=== PATIENT | male | born 1970 | race Caucasian/White ===

== ENCOUNTER 2018-07-12 03:16 | Inpatient (IN) | payer BC ==
[~2018-07-12] VITALS: Ht 175.3 cm; Wt 102.1 kg
[2018-07-12] VITALS (12 sets, daily range): BP systolic 111–208
[2018-07-12] MEDS ORDERED: cloNIDine HCL 0.1 MG TABLET PO ONE ×2 (03:45→05:15)
[2018-07-12 03:53] LABS: BASOPHILS % (AUTO) 0.4 % (0.0-2.0); EOSINOPHILS # (AUTO) 0.2 K/uL (0.0-0.4); EOSINOPHILS % (AUTO) 2.1 % (0.0-4.0); HEMATOCRIT 43.8 % (36-54); HEMOGLOBIN 15.2 g/dL (14.0-18.0); LYMPHOCYTES # (AUTO) 2.4 K/uL (1.0-5.5); LYMPHOCYTES % (AUTO) 22.8 % (20.5-51.5); MEAN CORPUSCULAR HEMOGLOBIN 32 pg (27-31); MEAN CORPUSCULAR HGB CONC 35 % (32-36); MEAN CORPUSCULAR VOLUME 92 fL (79.0-98.0); MONOCYTES # (AUTO) 0.8 K/uL (0.0-1.0); MONOCYTES % (AUTO) 7.4 % (1.7-9.3); NEUTROPHILS # (AUTO) 7.1 K/uL (1.8-7.7); NEUTROPHILS % (AUTO) 67.3 % (40.0-70.0); PLATELET COUNT (AUTO) 287 K/uL (130-430); RED BLOOD CELL COUNT(AUTO) 4.77 MIL/uL (4.2-6.2); RED CELL DISTRIBUTION WIDTH 12.9 % (9.0-15.0); WHITE BLOOD COUNT (AUTO) 10.6 K/uL (4.8-10.8)
[2018-07-12 04:09] LABS: CALCIUM 9.4 mg/dL (8.4-11.0); CREATININE 1.3 mg/dL (0.55-1.30); POTASSIUM 3.6 mmol/L (3.5-5.1)
[2018-07-12 04:14] LABS: ALBUMIN 3.1 g/dL (3.4-4.8); TOTAL BILIRUBIN 0.3 mg/dL (0.0-1.0)
[2018-07-12] MEDS ORDERED: ACETAMINOPHEN WITH CODEINE 12.5 ML UDC PO ONE (06:30)
[2018-07-12] MEDS ORDERED: hydrALAZINE HCL 20 MG/ML VIAL IVP ONE (06:45)
[2018-07-12] MEDS ORDERED: LORazepam 2 MG/ML VIAL IM ONE (07:00)
[2018-07-12] MEDS ORDERED: LORazepam 2 MG/ML VIAL (FOR ER USE) ONE (07:15)
[2018-07-12] MEDS ORDERED: LORazepam 2 MG/ML VIAL (FOR ER USE) IVP ONE (07:15)
[2018-07-12] MEDS ORDERED: IOHEXOL 0 ML IV ONE (07:59)
[2018-07-12] MEDS ORDERED: IOHEXOL 350 mgI/mL, 150 ML INFUS..BTL IV ONE (08:05)
[2018-07-12] MEDS ORDERED: MORPHINE 2 MG/ML INJ. SYRINGE IVP ONE (08:30)
[2018-07-12] MEDS ORDERED: cloNIDine HCL 0.2 MG TABLET PO ONE (09:30)
[2018-07-12] MEDS ORDERED: GLIP10TA11 PO (09:43)
[2018-07-12] MEDS ORDERED: ESCI20TA PO (09:43)
[2018-07-12] MEDS ORDERED: DIVA500T4 PO (09:43)
[2018-07-12] MEDS ORDERED: METO-442 PO (09:43)
[2018-07-12] MEDS ORDERED: ALPR0.5T PO (09:43)
[2018-07-12] MEDS ORDERED: SPIR25TA6 PO (09:43)
[2018-07-12] MEDS ORDERED: METF-510 PO (09:43)
[2018-07-12] MEDS ORDERED: HYDR100T25 PO (09:43)
[2018-07-12] MEDS ORDERED: LISI40TA4 PO (09:43)
[2018-07-12] MEDS ORDERED: cloNIDine HCL 0.2 MG TABLET PO PRN (10:15)
[2018-07-12] MEDS ORDERED: DEXTROSE 50% JECT 50 ML DISP.SYRIN IVP PRN (10:15)
[2018-07-12] MEDS ORDERED: FUROSEMIDE 20 MG/2 ML VIAL IVP ONE (10:15)
[2018-07-12] MEDS ORDERED: METOPROLOL TARTRATE 25 MG TABLET PO ONE (10:30)
[2018-07-12] MEDS ORDERED: ALPRAZolam 0.25 MG TABLET PO ONE (10:30)
[2018-07-12 11:24] LABS: BILIRUBIN,URINE NEGATIVE (NEGATIVE); BLOOD, URINE NEGATIVE (NEGATIVE); CLARITY/URINE CLEAR (CLEAR); COLOR,URINE YELLOW (YELLOW); GLUCOSE,URINE 3+ (NEGATIVE); KETONES,URINE NEGATIVE (NEGATIVE); LEUKOCYTE ESTERASE ,URINE NEGATIVE (NEGATIVE); NITRITE, URINE NEGATIVE (NEGATIVE); PROTEIN URINE 3+ (NEGATIVE); UROBILINOGEN,URINE 0.2 (0.2-1.0)
[2018-07-12 11:38] LABS: BARBITURATE, URINE NEGATIVE (NEG <=200); BENZODIAZEPINE, URINE POSITIVE (NEG <=150); CANNABINOID, URINE NEGATIVE (NEG <=50); COCAINE, URINE NEGATIVE (NEG <=150); METHAMPHETAMINES SCREEN,URINE NEGATIVE (NEG <=500); OPIATE, URINE POSITIVE (NEG <=100); PHENCYCLIDINE SCREEN,URINE NEGATIVE (NEG <=25); UR TRICYCLIC ANTIDEPRESSANTS NEGATIVE (NEG <=300); URINE AMPHETAMINE NEGATIVE (NEG <=500); URINE METHADONE NEGATIVE (NEG <=200); URINE OXYCODONE SCREEN NEGATIVE (NEG <=100); URINE PROPOXYPHENE SCREEN NEGATIVE (NEG <=300)
[2018-07-12 11:55] LABS: BACTERIA,URINE FEW /HPF (None Seen); WBC,URINE 0-3 /HPF (0-3)
[2018-07-12] MEDS: INSULIN REGULAR, HUMAN 100 UNITS/ML, 10 ML VIAL (novoLIN R) SUBCUT PRN ×2 (13:24→21:23)
[2018-07-12] MEDS: FLUCONAZOLE 400 mg/ NS 200 ML IV SCH ×2 (13:26→15:29)
[2018-07-12] MEDS ORDERED: ONDANSETRON HCL 4 MG/2 ML VIAL IVP ONE (13:45)
[2018-07-12] MEDS ORDERED: D5/0.45 NS 1,000 ML IV SCH (15:15)
[2018-07-12] MEDS: ALPRAZolam 0.25 MG TABLET PO SCH ×2 (17:00→21:00)
[2018-07-12] MEDS ORDERED: ASPIRIN 300 MG/SUPP.RECT SUPP RC ONE (17:15)
[2018-07-12] MEDS ORDERED: ENOXAPARIN SODIUM 40 MG/0.4 ML SYRINGE SUBCUT ONE (17:15)
[2018-07-12] MEDS: D5/0.45 NS 1,000 ML IV SCH (17:24)
[2018-07-12] MEDS: ONDANSETRON HCL 4 MG/2 ML VIAL IVP PRN (19:49)
[2018-07-12] MEDS: hydrALAZINE HCL 25 MG TABLET PO SCH (21:00)
[2018-07-12] MEDS: DIVALPROEX SODIUM 500 MG TAB.SR.24H (DEPAKOTE ER) PO SCH (21:00)
[2018-07-12] MEDS ORDERED: CITALOPRAM HYDROBROMIDE 20 MG TABLET PO SCH (21:00)
[2018-07-12] MEDS: METOPROLOL TARTRATE 50 MG TABLET PO SCH (21:00)
[2018-07-12] MEDS: CEFEPIME 1 GM in D5W 50 ML IV SCH (21:01)
[2018-07-12] MEDS ORDERED: CEFEPIME 1 GM/VIAL (MAXIPIME) ONE (21:01)
[2018-07-13] VITALS (24 sets, daily range): BP systolic 123–213
[2018-07-13] MEDS: D5/0.45 NS 1,000 ML IV SCH ×2 (01:49→10:57)
[2018-07-13] MEDS: ONDANSETRON HCL 4 MG/2 ML VIAL IVP PRN (04:03)
[2018-07-13 05:49] LABS: BASOPHILS # (AUTO) 0.1 K/uL (0.0-0.2); EOSINOPHILS % (AUTO) 0.4 % (0.0-4.0); HEMATOCRIT 36.1 % (36-54); HEMOGLOBIN 12.3 g/dL (14.0-18.0); LYMPHOCYTES # (AUTO) 1.8 K/uL (1.0-5.5); LYMPHOCYTES % (AUTO) 13.6 % (20.5-51.5); MEAN CORPUSCULAR HEMOGLOBIN 32 pg (27-31); MEAN CORPUSCULAR HGB CONC 34 % (32-36); MEAN CORPUSCULAR VOLUME 93 fL (79.0-98.0); MONOCYTES # (AUTO) 1.1 K/uL (0.0-1.0); MONOCYTES % (AUTO) 8.7 % (1.7-9.3); NEUTROPHILS # (AUTO) 9.9 K/uL (1.8-7.7); NEUTROPHILS % (AUTO) 76.3 % (40.0-70.0); PLATELET COUNT (AUTO) 205 K/uL (130-430); RED BLOOD CELL COUNT(AUTO) 3.87 MIL/uL (4.2-6.2); RED CELL DISTRIBUTION WIDTH 12.5 % (9.0-15.0); WHITE BLOOD COUNT (AUTO) 12.9 K/uL (4.8-10.8)
[2018-07-13 06:05] LABS: ANION GAP 10 (5-15); CALCIUM 8.4 mg/dL (8.4-11.0); CHLORIDE 102 mmol/L (98-107); CREATININE 1.51 mg/dL (0.55-1.30); GLUCOSE 190 mg/dL (70-99); POTASSIUM 3.4 mmol/L (3.5-5.1); SODIUM SERUM 138 mmol/L (136-145); UREA NITROGEN, BLOOD 22 mg/dL (8-21)
[2018-07-13 06:21] LABS: THYROID STIMULATING HORMONE 0.89 uIu/mL (0.36-3.74)
[2018-07-13] MEDS: INSULIN REGULAR, HUMAN 100 UNITS/ML, 10 ML VIAL (novoLIN R) SUBCUT PRN ×3 (06:27→20:57)
[2018-07-13 06:34] LABS: GFR AFRICAN AMERICAN 64 mL/min (>90)
[2018-07-13 06:51] LABS: TRIGLYCERIDES 385 mg/dL (30-150)
[2018-07-13 06:52] LABS: CHOLESTEROL 231 mg/dL (<200); HDL CHOLESTEROL 31 mg/dL (>45); LDL CHOLESTEROL 125 mg/dL (<100)
[2018-07-13] MEDS ORDERED: NS 250 ML IV ONE (08:30)
[2018-07-13] MEDS: METOPROLOL TARTRATE 50 MG TABLET PO SCH (09:00)
[2018-07-13] MEDS ORDERED: SPIRONOLACTONE 25 MG TABLET (ALDACTONE) PO SCH (09:00)
[2018-07-13] MEDS ORDERED: LISINOPRIL 20 MG TABLET PO SCH (09:00)
[2018-07-13] MEDS: hydrALAZINE HCL 25 MG TABLET PO SCH ×2 (09:00→21:00)
[2018-07-13] MEDS: ALPRAZolam 0.25 MG TABLET PO SCH (09:00)
[2018-07-13] MEDS ORDERED: IOHEXOL 350 mgI/mL, 150 ML INFUS..BTL IV ONE (09:02)
[2018-07-13] MEDS: ENOXAPARIN SODIUM 40 MG/0.4 ML SYRINGE SUBCUT SCH ×2 (09:19→20:32)
[2018-07-13] MEDS: LABETALOL 100 MG/ 20ML VIAL IVP SCH ×6 (09:20→21:52)
[2018-07-13] MEDS: CEFEPIME 1 GM in D5W 50 ML IV SCH ×2 (09:22→20:32)
[2018-07-13] MEDS: ASPIRIN 300 MG/SUPP.RECT SUPP RC SCH (09:23)
[2018-07-13] MEDS ORDERED: DEXTROSE 50% JECT 50 ML DISP.SYRIN IVP PRN (12:15)
[2018-07-13] MEDS ORDERED: INSULIN REGULAR, HUMAN 100 UNITS/ML, 10 ML VIAL (novoLIN R) SUBCUT PRN (12:15)
[2018-07-13] MEDS ORDERED: *TPN PER PHARMACY XX PRN (12:15)
[2018-07-13] MEDS ORDERED: METOCLOPRAMIDE HCL 10 MG/2 ML VIAL IVP ONE (12:30)
[2018-07-13] MEDS: CLINDAMYCIN 600 MG in D5W 50 ML IV SCH ×2 (14:05→18:01)
[2018-07-13] MEDS ORDERED: METOCLOPRAMIDE HCL 10 MG/2 ML VIAL ONE ×2 (14:13→15:50)
[2018-07-13 15:52] LABS: CALCIUM 8.7 mg/dL (8.4-11.0); CREATININE 1.27 mg/dL (0.55-1.30); POTASSIUM 3.3 mmol/L (3.5-5.1)
[2018-07-13 15:57] LABS: PROTHROMBIN TIME 9.8 SECS (9.5-12.5)
[2018-07-13] MEDS ORDERED: POTASSIUM CHLORIDE 40 MEQ, LIDOCAINE JECT 2% PF 100 MG 50 MG in NS 250 ML IV ONE (17:30)
[2018-07-13] MEDS: METOCLOPRAMIDE HCL 10 MG/2 ML VIAL IVP SCH (18:00)
[2018-07-13] MEDS: D5LR 1,000 ML IV SCH (20:54)
[2018-07-13] MEDS: DIVALPROEX SODIUM 500 MG TAB.SR.24H (DEPAKOTE ER) PO SCH (21:00)
[2018-07-13] MEDS: KCL 20 mEq in 100 mL (PREMIX) 100 ML IV SCH (21:51)
[2018-07-13] MEDS: LORazepam 2 MG/ML VIAL IVP PRN (21:52)
[2018-07-14] VITALS (18 sets, daily range): BP systolic 126–217
[2018-07-14] MEDS: KCL 20 mEq in 100 mL (PREMIX) 100 ML IV SCH (00:13)
[2018-07-14] MEDS: VALPROATE SODIUM 500 MG in D5W 100 ML IV SCH ×3 (00:15→16:00)
[2018-07-14] MEDS ORDERED: VALPROATE SODIUM 100 MG/ML VIAL (DEPACON) IV ONE ×2 (00:15)
[2018-07-14] MEDS: hydrALAZINE HCL 20 MG/ML VIAL IVP PRN ×3 (00:16→14:16)
[2018-07-14] MEDS: METOCLOPRAMIDE HCL 10 MG/2 ML VIAL IVP SCH ×3 (00:17→13:03)
[2018-07-14] MEDS: LORazepam 2 MG/ML VIAL IVP PRN (00:17)
[2018-07-14] MEDS: LABETALOL 100 MG/ 20ML VIAL IVP SCH ×10 (00:18→16:03)
[2018-07-14] MEDS: CLINDAMYCIN 600 MG in D5W 50 ML IV SCH ×3 (00:19→13:03)
[2018-07-14] MEDS: D5LR 1,000 ML IV SCH ×2 (06:18→10:10)
[2018-07-14 06:25] LABS: BASOPHILS # (AUTO) 0.1 K/uL (0.0-0.2); BASOPHILS % (AUTO) 0.9 % (0.0-2.0); EOSINOPHILS # (AUTO) 0.1 K/uL (0.0-0.4); HEMATOCRIT 37.7 % (36-54); HEMOGLOBIN 12.8 g/dL (14.0-18.0); LYMPHOCYTES # (AUTO) 1.5 K/uL (1.0-5.5); MEAN CORPUSCULAR HEMOGLOBIN 32 pg (27-31); MEAN CORPUSCULAR HGB CONC 34 % (32-36); MEAN CORPUSCULAR VOLUME 94 fL (79.0-98.0); MONOCYTES # (AUTO) 0.8 K/uL (0.0-1.0); MONOCYTES % (AUTO) 9.1 % (1.7-9.3); NEUTROPHILS # (AUTO) 6.8 K/uL (1.8-7.7); PLATELET COUNT (AUTO) 220 K/uL (130-430); RED BLOOD CELL COUNT(AUTO) 4.02 MIL/uL (4.2-6.2); RED CELL DISTRIBUTION WIDTH 12.6 % (9.0-15.0); WHITE BLOOD COUNT (AUTO) 9.4 K/uL (4.8-10.8)
[2018-07-14] MEDS: INSULIN REGULAR, HUMAN 100 UNITS/ML, 10 ML VIAL (novoLIN R) SUBCUT PRN (06:33)
[2018-07-14 06:35] LABS: ALBUMIN 2.2 g/dL (3.4-4.8); CALCIUM 8.4 mg/dL (8.4-11.0); CREATININE 1.19 mg/dL (0.55-1.30); PHOSPHORUS 3.2 mg/dL (2.7-4.5); POTASSIUM 3.9 mmol/L (3.5-5.1); TOTAL BILIRUBIN 0.4 mg/dL (0.0-1.0)
[2018-07-14] MEDS: hydrALAZINE HCL 25 MG TABLET PO SCH (09:00)
[2018-07-14] MEDS: ASPIRIN 300 MG/SUPP.RECT SUPP RC SCH (09:34)
[2018-07-14] MEDS: CEFEPIME 1 GM in D5W 50 ML IV SCH (09:37)
[2018-07-14] MEDS: ENOXAPARIN SODIUM 40 MG/0.4 ML SYRINGE SUBCUT SCH (09:38)
[2018-07-14] MEDS ORDERED: IOHEXOL 350 mgI/mL, 150 ML INFUS..BTL IV ONE (10:31)
[2018-07-14] MEDS ORDERED: D5LR 1,000 ML IV SCH (18:00)
[2018-07-14] MEDS ORDERED: TPN CENTRAL IV SCH ×7 (18:00)
[2018-07-14] MEDS ORDERED: SODIUM ACETATE IV SCH ×7 (18:00)
[2018-07-14] MEDS ORDERED: POTASSIUM CHLORIDE IV SCH ×7 (18:00)
[2018-07-14] MEDS ORDERED: [UNRECOGNIZED DRUG - OTHER] IV SCH ×7 (18:00)
== END 2018-07-14 17:00 | disposition short-term general hospital (02) | DRG 64 ==
LOC: SED 03:16 → STU 07:44 → SIC 17:30
PROVIDERS: ADMIT Internal Medicine; ATTEND Internal Medicine
DX: I63.9 Cerebral infarction, unspecified (principal); J69.0 Pneumonitis due to inhalation of food and vomit; E43 Unspecified severe protein-calorie malnutrition; N17.0 Acute kidney failure with tubular necrosis; I77.74 Dissection of vertebral artery; I16.1 Hypertensive emergency; G46.3 Brain stem stroke syndrome; G46.4 Cerebellar stroke syndrome; F41.9 Anxiety disorder, unspecified; E11.9 Type 2 diabetes mellitus without complications; E66.01 Morbid (severe) obesity due to excess calories; F31.9 Bipolar disorder, unspecified; I10 Essential (primary) hypertension; J45.909 Unspecified asthma, uncomplicated; R13.10 Dysphagia, unspecified; R29.810 Facial weakness; Z96.652 Presence of left artificial knee joint; R47.81 Slurred speech; G47.33 Obstructive sleep apnea (adult) (pediatric); I45.10 Unspecified right bundle-branch block; E78.5 Hyperlipidemia, unspecified; K76.0 Fatty (change of) liver, not elsewhere classified; E66.9 Obesity, unspecified; I65.1 Occlusion and stenosis of basilar artery; Z82.49 Family history of ischemic heart disease and other diseases of the circulatory system; Z83.3 Family history of diabetes mellitus; Z87.891 Personal history of nicotine dependence; Z88.0 Allergy status to penicillin; Z88.2 Allergy status to sulfonamides; Z79.899 Other long term (current) drug therapy; Z91.19 Patient's noncompliance with other medical treatment and regimen
CPT/HCPCS: 36415; 70360-TC; 70450-TC; 70490; 70496; 70498; 70551; 71045; 71260-TC; 76770; 80048; 80053; 80061; 80307; 81000-TC; 82550-TC; 82962; 83036; 83735-TC; 83880; 84100-TC; 84443-TC; 84478-TC; 84484; 85025; 85610-TC; 85730-TC; 87070-TC; 87081; 87205-TC; 92610-GN; 93005; 93306; 93880; 96374; 96375; 99285; J0360; J0692; J1450; J1650; J1815; J1956; J2060; J2270; J2405; J2765; J3475; J3480; J3490; J7030; J7040; J7050; J7060; J7120; Q9967